=== PATIENT | male | born 1935 | race Caucasian/White ===

== ENCOUNTER 2020-01-14 13:39 | Inpatient (IN) | payer MEDICARE ==
[2020-01-14 15:43] LABS: Troponin I Less than 0.010 ng/mL (< 0.028)
[2020-01-14] MEDS ORDERED: Acetaminophen 325 MG TAB PO PRN (15:48)
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
[2020-01-14 18:16] LABS: Troponin I Less than 0.010 ng/mL (< 0.028)
[2020-01-14 18:49] VITALS: BMI 28.3
[2020-01-15 05:02] LABS: Cardiac Risk 2.9 (Less than 4.5)
[2020-01-15 07:35] LABS: SARS-CoV-2 MS2 Positive; SARS-CoV-2 N Gene Negative; SARS-CoV-2 S Gene Negative; SARS-CoV-2 by NAA Not Detected (NotDetected); SARS-CoV-2 orf1ab Negative
--- NOTE | 2020-01-15 07:51 | ULT ---
EXAM: Carotid ultrasound HISTORY: Syncope COMPARISON: None TECHNIQUE: Multiplanar grayscale and color Doppler images were obtained in a carotid ultrasound. Spec tral analysis of the Doppler waveforms were performed. FINDINGS: A small amount of plaque is seen in the bilateral internal carotid arteries, right greater than left. The Doppler waveforms are normal in the visualized vessels. Peak systolic velocity in the right internal carotid artery 38 cm/s. Peak systolic velocity in the right common carotid artery 84 cm/s. The right ICA/CCA ratio is 0.5. Peak systolic velocity in the left internal carotid artery 83 cm/s. Peak systolic velocity in the left common carotid artery 73 cm/s. The left ICA/CCA ratio is 0.7. Both vertebral arteries demonstrate antegrade flow without focal stenosis IMPRESSION: No evidence of hemodynamically significant stenosis.
[2020-01-15] MEDS ORDERED: Aspirin 81 mg Enteric Coated Tablet PO SCH (09:00)
[2020-01-15] MEDS ORDERED: FLU VACC QS2020-21(65YR UP)/PF 240 MCG/0.7 ML SYRINGE IM ONE (09:00)
--- NOTE | 2020-01-15 10:42 | MRI ---
EXAM: MRI of the brain without contrast HISTORY: Syncope and fall COMPARISON: CT brain 01/14/2020 TECHNIQUE: Multiplanar multisequence MR images were obtained of the brain without IV contrast. FINDINGS: Cerebral atrophy is seen. A few scattered foci of high T2/FLAIR signal in the subcortical and periven tricular white matter are likely secondary to small vessel ischemic disease. No restricted diffusion. No hydronephrosis. No extra-axial fluid collection or intracranial hemorrhage. The expected flow voids are present. Corpus callosum, pituitary, and craniocervical junction are within normal limits. The calvarium and overlying soft tissues are unremarkable. The paranasal sinuses and mastoid air cells are well aerated. IMPRESSION: No evidence of acute intracranial abnormality.
[2020-01-15 16:24] VITALS: BP 151/91; TEMP 97.8
--- NOTE | 2020-01-15 17:57 | CON ---
DATE OF CONSULTATION: 01/15/2020 REASON FOR CONSULTATION: Probable syncopal episode. HISTORY OF PRESENT ILLNESS: Mr. Chow is an 84-year-old gentleman. The patient is a very imprecise historian. He initially said he had not fainted, not passed out, not lost consciousness, but eventually told me that he did have an episode a few days ago when he was got up and then he found himself on the floor. Really cannot give me other details of that. He said once he got up, he went ahead and "went to work." The patient states when he gets up, he feels lightheaded and unsteady, but he has not fallen except for that one time. PAST MEDICAL HISTORY: History of macular degeneration. PAST SURGICAL HISTORY: Negative. MEDICATIONS: None. FAMILY HISTORY: Both parents of natural causes. ALLERGIES: DENIES. SOCIAL HISTORY: Remote smoking. No alcohol. REVIEW OF SYSTEMS: CONSTITUTIONAL: No significant weight gain or loss. VISION: No changes. HEARING: No changes. PULMONARY: No cough or wheezing. GASTROINTESTINAL: No nausea, vomiting, or diarrhea. SKIN: No rashes. NEUROLOGIC: No unilateral weakness or numbness. PSYCHIATRIC: No unusual depression or anxiety. PHYSICAL EXAMINATION: GENERAL: This is a pleasant gentleman, in no distress. VITAL SIGNS: Blood pressure 141/83. He apparently did not have any orthostatic changes. There was another of sitting 141/85, standing 134/84, not significantly dropping. Pulse 70. LUNGS: Clear. CARDIAC: Normal S1, normal S2. ABDOMEN: Soft, nontender. EXTREMITIES: Warm and dry. No clubbing or cyanosis. There is no edema. Good peripheral pulses. DIAGNOSTIC STUDIES: EKG; normal sinus rhythm, normal EKG. On the telemetry here on the monitor, incomplete right bundle-branch block. ASSESSMENT: 1. One episode of syncope. 2. He had one episode of nonsustained ventricular tachycardia, 5 beats, rate of about 160 on 01/14/2020 at 8:40 p.m. RECOMMENDATIONS: We would recommend stress testing and monitoring. The patient states he is going to leave, does not wish to stay in the hospital anymore. Can try to arrange for outpatient event monitoring and outpatient stress testing. His echocardiogram was within normal limits. Job ID: [id number]
--- NOTE | 2020-01-16 02:08 | DIS ---
DATE OF ADMISSION: 01/14/2020 DATE OF DISCHARGE: 01/15/2020 DISCHARGE DIAGNOSES: As of the followin. Syncope. 2. Macular degeneration. HOSPITAL COURSE: The patient is an 84-year-old male, who states that he has some sort of a cancer, which he does not know what type it is and received radiation therapy, who came into the hospital with a syncopal episode. The patient stated that he got up, walked, made himself a pot of coffee and then the next thing he know he woke up on the floor. At this time, the patient was evaluated for possible cardiac versus neurological causes of syncope. His orthostatics were negative. He had carotid Dopplers, which were negative. His MRI brain was done, which did not show any acute intracranial abnormalities. We went ahead and did an echocardiogram. The echo indicated an EF of 60%-65%, which was structurally normal mitral valve and aortic valve. At this time, Cardiology saw the patient and recommended a loop recorder. The patient will be discharged home, follow up as an outpatient for the loop recorder. I have advised him against driving. He does not drive. His friend who lives with him drives him around. The patient actually did not wait to get the discharge order. He just left before he receive the discharge order. He will follow up with his primary also which is at the [facility]. PHYSICAL EXAMINATION: VITAL SIGNS: His temperature on discharge was 97.8, pulse 84, respirations of 18, 96% on room air, blood pressure 132/88. GENERAL: He is awake, alert, and oriented x3. Does not appear in distress. CV: S1, S2 present. No murmurs, rubs, or gallops. Again, he will be discharged home with followup with his primary. Job ID: [id number]
== END 2020-01-15 17:05 | disposition left against medical advice (07) | DRG 312 ==
LOC: ERS 13:39 → OBSVTOIN 14:26 → ERHOLD 14:26 → 2NO 18:22
PROVIDERS: ADMIT Internal Medicine; ATTEND Internal Medicine
DX: R55 Syncope and collapse (principal); G89.29 Other chronic pain; M54.2 Cervicalgia; H35.30 Unspecified macular degeneration; Z85.118 Personal history of other malignant neoplasm of bronchus and lung; Z87.891 Personal history of nicotine dependence; Z79.899 Other long term (current) drug therapy; Z92.3 Personal history of irradiation; Z20.828 Contact with and (suspected) exposure to other viral communicable diseases
CPT/HCPCS: 36415; 70551; 80061; 84443; 87635; 93306; 93880; U0003